=== PATIENT | female | born 1965 | race African-American/Black ===

== ENCOUNTER 2023-11-17 11:05 | Emergency (ER) | payer MEDICAID ==
[~2023-11-17] VITALS: Ht 160 cm; Wt 58.0 kg
[2023-11-17 11:16] VITALS: TEMP 98.2; O2SAT 100
[2023-11-17] MEDS ORDERED: CYCL5TAB MT (12:40)
[2023-11-17] MEDS ORDERED: IBUP-2029 MT (12:40)
[2023-11-17 13:17] VITALS: BP 155/96; PULSE 71; RESP 20
[2023-11-17] MEDS: IBUPROFEN 600MG TABLET PO STA (13:17)
== END 2023-11-17 14:10 | disposition home or self-care (01) ==
LOC: ER 11:05
DX: M54.9 Dorsalgia, unspecified (principal); I10 Essential (primary) hypertension
CPT/HCPCS: 99283